=== PATIENT | male | born 1995 | race Caucasian/White ===

== ENCOUNTER 2024-01-11 10:05 | Outpatient (OUT) | payer MEDICAID, SELFPAY ==
--- NOTE | 2024-01-11 10:31 | CA_ITS ---
The [facility] Test Date: 2024-01-25 Pat Name: Elijah Tanner Department: Room: - Gender: Male Healthcare Account Manager: : 1995 Requested By: ELMO CHAMPAGNE Order Number: [id number] Reading MD: ERICK RIVERA Interpretive Statements Predominant rhythm is sinus with average rate of 101 bpm Tachycardia - max rate of 175 bpm (sinus tachycardia) - longest episode of 13h 24min 18sec with rates between 126-175 bpm Bradycardia - min rate of 52 bpm - longest episode of 38sec with rates between 54-59 bpm Ventricular ectopy - 199 total, <1% - 195 PVC - 2 couplets Patient triggered events: 8 - associated with palpitations - associated with sinus tachycardia - associated with rates of 126, 107, 109, 101, 100, 163, 154 and 125 bpm Impression: Predominant rhythm is sinus with average rate of 101 bpm Fastest rate of 175 bpm (sinus tachycardia) and slowest rate of 52 pbm 195 PVC and 2 coupletes No atrial fibrillation No pauses or blocks Electronically Signed On 01-26-2024 7:11:57 EDT by ERICK RIVERA
== END 2024-01-11 10:06 | disposition home or self-care (01) ==
LOC: CARD 10:06
PROVIDERS: PCP Family Medicine; Visit Provider Family Medicine
DX: R00.2 Palpitations (principal)
CPT/HCPCS: 93246

== ENCOUNTER 2024-03-22 15:08 | Emergency (ER) | payer MEDICAID, SELFPAY ==
[2024-03-22 15:14] VITALS: BP 180/92; PULSE 89; TEMP 37.2; O2SAT 99; BMI 41.8
--- NOTE | 2024-03-22 15:25 | US_ITS ---
The [address] [address] Patient Name: PADILLA CASTILLO MRN: [id number] date: 1995 Sex: M Assigned Patient Location: ER Current Patient Location: ER Accession/Order Number: [id number] Exam Date: 03/22/2024 16:04 Report Date: 03/22/2024 16:59 At the request of: [facility] Procedure: US scrotum doppler EXAM: US scrotum doppler HISTORY: testicular pain- LEFT COMPARISON: None. TECHNIQUE: Grayscale, color and Doppler FINDINGS: The right testicle is normal in size, contour and homogeneous echotexture measuring 4.3 x 2.6 x 3.1 cm. Normal color Doppler flow The right epididymis is normal No right hydrocele or varicocele. The left testicle is normal in size, contour and homogeneous echotexture measuring 4.2 x 2.6 x 3.0 cm. Normal color Doppler flow The left epididymis is normal Left hydrocele. Small left varicocele US/US scrotum doppler IMPRESSION: Small left varicocele Electronically authenticated by: REYNA BURNETTE Date: 03/22/2024 16:59
--- NOTE | 2024-03-22 15:29 | ED.GENADUL1 ---
HPI HPI - General Adult General Chief complaint: Urogenital-Male Stated complaint: Scrotal Pain Time Seen by Provider: 03/22/24 15:10 Source: patient Mode of arrival: walk-in Limitations: no limitations History of Present Illness HPI narrative: Patient presents to ED complaining of testicular pain. He said he has had mostly left Testicular pain On and off for the past month a month and a half. He said he was exposed to trichomonas And his doctor gave him some Flagyl to take at home but he did not take it. He is unsure if he is exposed to anything else. He was not tested for gonorrhea or chlamydia. He denies any pain with urination or abnormal discharge or redness. He said he was looking on the Internet and became nervous after reading about torsion and other serious things about testicular pain so he came in today for further evaluation. Patient does have a history of anxiety and high blood pressure.He denies abdominal pain or back pain Related Data Home Medications ?Medication ?Instructions ?Recorded ?Confirmed clonazepam 1 mg tablet 1 mg PO Q8H PRN anxiety 03/22/24 03/22/24 metoprolol tartrate 50 mg tablet 50 mg PO Q12H 03/22/24 03/22/24 Allergies Allergy/AdvReac Type Severity Reaction Status Date / Time No Known Drug Allergies Allergy Verified 03/22/24 15:12 Opioid HPI Opioid Management Most Recent Opioid Data: No Data to Display Review of Systems ROS Status of ROS 10 or more systems reviewed and unremarkable except as noted in history and below Exam Narrative Exam Narrative: General: alert, no acute distress Cardiovascular: regular rate and rhythm, normal peripheral perfusion. Respiratory: Lungs CTA, respirations non labored. Extremities: no deformity, no trauma. Neurological: oriented x 4, LOC appropriate for age. Abdomen soft nontender nondistended, obesity Normal external genitalia. Mild swelling in the left testicle with very mild pain. No acute tenderness no abnormal discharge no lesions Constitutional Vital Signs, click to edit/add: Last Vital Signs Temp 98.9 F 03/22/24 15:14 Pulse 86 03/22/24 16:56 Resp 18 03/22/24 16:56 BP 162/94 H 03/22/24 16:56 Pulse Ox 98 03/22/24 16:56 O2 Del Method Room Air 03/22/24 15:14 Course Vital Signs Vital signs: Vital Signs Temperature 98.9 F 03/22/24 15:14 Pulse Rate 89 03/22/24 15:14 Respiratory Rate 18 03/22/24 15:14 Blood Pressure 180/92 H 03/22/24 15:14 Pulse Oximetry 99 03/22/24 15:14 Oxygen Delivery Method Room Air 03/22/24 15:14 Temperature 98.9 F 03/22/24 15:14 Pulse Rate 86 03/22/24 16:56 Respiratory Rate 18 03/22/24 16:56 Blood Pressure 162/94 H 03/22/24 16:56 Pulse Oximetry 98 03/22/24 16:56 Oxygen Delivery Method Room Air 03/22/24 15:14 Medical Decision Making MDM Narrative Medical decision making narrative: Patient's urine is nonacute. He declined the swab for trichomonas. Gonorrhea chlamydia were sent in the urine and will not be back for couple of days.Patient has Flagyl at home for treatment of trichomonas exposure and he states he will just be taking that when he gets home. Ultrasound shows a small left varicocele. Otherwise workup is nonacute. Patient can follow-up with urology if he continues to have discomfort. Otherwise return to ED if anything worsens. Patient and family are comfortable care plan for home Differential Diagnosis Differential Diagnosis: Varicocele hydrocele Trichomonas STI Medical Records Medical records reviewed: Yes I reviewed the patient's medical records Lab Data Lab results reviewed: Yes I reviewed the patient's lab results Labs: Lab Results 03/22/24 Range/Units 15:29 Urine Color Lt. yellow (YELLOW) Urine Clarity Clear (CLEAR) Urine pH 6.0 (5.0-9.0) Ur Specific [place] 1.010 (1.005-1.025) Urine Protein Negative (NEG/TRACE) mg/dL Urine Glucose (UA) Negative (NEGATIVE) mg/dL Urine Ketones Negative (NEGATIVE) mg/dL Urine Occult Blood Negative (NEGATIVE) Urine Nitrite Negative (NEGATIVE) Urine Bilirubin Negative (NEGATIVE) Urine Urobilinogen 0.2 (0.2-1.0) EU/dL Ur Leukocyte Esterase Trace A (NEGATIVE) Urine RBC None seen (0-2) #/HPF Urine WBC 0-2 A (NONE SEEN) #/HPF Ur Squamous Epith Cells Rare (NONE/RARE) #/LPF Urine Crystals None seen (None Seen) #/HPF Urine Bacteria Trace A (NONE SEEN) #/HPF Urine Casts None seen (NONE SEEN) #/LPF Urine Mucus None seen (NONE SEEN) Ur Culture Indicated? No Imaging Data testicular US: Radiologist's impression: ITS Impressions Scrotum Ultrasound 03/22/24 15:25 IMPRESSION: Small left varicocele Electronically authenticated by: REYNA BURNETTE Date: 03/22/2024 16:59 Discharge Plan Discharge Stand Alone Forms: Portal Instructions Chief Complaint: Urogenital-Male Clinical Impression: Varicocele Patient Disposition: Home, Self-Care Time of Disposition Decision: 17:05 Condition: Good Mode of Transportation: Private Vehicle Prescriptions / Home Meds: No Action clonazepam 1 mg tablet 1 mg PO Q8H PRN (Reason: anxiety) metoprolol tartrate 50 mg tablet 50 mg PO Q12H Print Language: Kiswahili Instructions: Scrotal Pain (ED) Referrals: Socrates Grigsby MD [Primary Care Provider] - 1 week Maxwell Gallagher MD [Physician] - 1 week
[2024-03-22 15:38] LABS: Bilirubin Urine NEGATIVE (NEGATIVE); Blood Urine NEGATIVE (NEGATIVE); Clarity Urine CLEAR (CLEAR); Color Urine LT. YELLOW (YELLOW); Glucose Urine UA NEGATIVE (NEGATIVE); Ketones Urine NEGATIVE (NEGATIVE); Leukocyte Esterase Urine TRACE (NEGATIVE); Nitrite Urine NEGATIVE (NEGATIVE); Protein Urine NEGATIVE (NEG/TRACE); Urobilinogen Urine 0.2 EU/dL (0.2-1.0)
[2024-03-22 15:43] LABS: Urine Microscopic Indicated YES
[2024-03-22 15:59] LABS: Bacteria Urine TRACE #/HPF (NONE SEEN); Cast Seen? NONE SEEN #/LPF (NONE SEEN); Crystals Seen? None Seen #/HPF (None Seen); Mucus Urine NONE SEEN (NONE SEEN); RBC Urine NONE SEEN #/HPF (0-2); Squamous Epithelial Cell Urine RARE #/LPF (NONE/RARE); Urine Culture Indicated NO; WBC Urine 0-2 #/HPF (NONE SEEN)
[2024-03-22 16:56] VITALS: BP 162/94; PULSE 86; O2SAT 98
[2024-03-23 21:10] LABS: Neisseria gonorrhoeae, NAA Negative (Negative)
== END 2024-03-22 17:10 | disposition home or self-care (01) ==
PROVIDERS: Emergency Provider Emergency Medicine; PCP Family Medicine
DX: I86.1 Scrotal varices (principal); E66.9 Obesity, unspecified; Z68.41 Body mass index [BMI] 40.0-44.9, adult
CPT/HCPCS: 76870; 81001; 87210; 87491; 87591; 93976; 99284

== ENCOUNTER 2024-08-10 09:56 | Outpatient (OUT) | payer MEDICAID, SELFPAY ==
--- OUTSIDE RECORDS SUMMARY | 2024-08-10 09:59 | XMS_ITS | CCD ---
Author Organization [facility] ion [facility] Care Team Providers Care Cigarette Seller Name Role Phone TORRES MCKAY Unavailable Unavailable TORRES MKCAY Unavailable Unavailable EDDIE GREY PSYD Unavailable UnavailSOCRATES Chahal Consulting Unavailable SOCRATES CHAMPAGNE Attending Unavailable SOCRATES CHAMPAGNE Admitting Unavailable SOCRATES CHAMPAGNE Attending Unavailable SOCRATES CHAMPAGNE Admitting Unavailable SOCRATES CHAMPAGNE Primary Care Unavailable SOCRATES CHAMPAGNE Consulting Unavailable Vicki Gibbs Unavailable Anita Doty Unavailable Frances Driscoll Unavailable Samano, Evelyn Unavailable Samano Evelyn Attending Unavailable Selwyn, Evelyn Admitting Unavailable Socrates Champagne MD Primary Care Provider SOCRATES CHAMPAGNE Referring Unavailable SOCRATES CHAMPAGNE Primary Care Unavailable SOCRATES CHAMPAGNE Primary Care Physician [phone] Maxwell GALLAGHER Attending Unavailable NADSIMON, SOCRATES Attending Unavailable NADSIMON, SOCRATES Attending Unavailable NADEREBarrett, SOCRATES Attending Unavailable NADEREBarrett, SOCRATES Attending Unavailable NADSOCRATES MONTES Attending Unavailable Allergies Allergy Classification Reported Allergen(s) Allergy Type Date of Onset Reaction(s) Facility (2 sources) No Known Medication Allergies; Translations: [No Known Medication Allergies] Propensity to adverse reactions to drug (disorder) [facility] Repository Medications Current Medications Medication Drug Class(es) Dates Sig (Normalized) Sig (Original) amoxicillin 500 mg oral capsule (1 source) Penicillin-class Antibacterial Start: 01-10-2024 take 500 mg by mouth three times daily Amoxicillin Active 500 MG PO Three times daily 23 08January 10, 2024 12:00am clonazePAM 1 mg oral tablet (9 sources) Benzodiazepine Start: 04-28-2024 take 1 tablet by mouth three times daily clonazepam 1 mg Tab 1 mg = 1 tab(s), Oral, TID, Refills(s) 0 Start Date: 04/28/24 Status: Ordered Start: 01-10-2024 take 1 tablet by aden th once daily at bedtime Clonazepam Active 1 TAB PO Daily at bedtime January 10, 2024 12:00am FreeTextSi tablet at bedtime Orally Once a day; Note: Source Status: Taking; Provider: Selwyn Rivas ( ) Start: 11-22-2023 End: 01-02-2024 take 1 tablet by mouth three times daily as needed for anxiety clonazePAM (KlonoPIN) 0.5 MG tablet Indications: Generalized anxiety disorder (CMS/HCC) Take 1 tablet (0.5 mg) by mouth 3 (three) times a day as needed for anxiety 90 tablet 1 12/03/2023 01/02/2024 Active take 1 tablet by aden th every twenty-four hours KlonoPIN 0.5 MG 1 tablet at bedtime Orally Once a day Active ibuprofen 800 mg oral tablet (2 sources) Nonsteroidal Anti-inflammatory Drug End: 12-03-2023 take 1 tablet by mouth every eight hours as needed for pain ibuprofen 800 MG tablet Take 1 tablet by mouth every 8 (eight) hours if needed for mild pain (take with food) 0 12/03/2023 Discontinued methylPREDNISolone 4 mg oral tablet (4 sources) Corticosteroid Start: 03-01-2023 Medrol (Raciel) 4 MG as directed Orally for daily dose take half with breakfast half with dinner for 6 days Sep, Active Start: 10-17-2020 Medrol 4 MG as directed Orally for 6 days Sep, Active 24 hr metoprolol succinate 50 mg extended release oral tablet (7 sources) beta-Adrenergic Matthew Start: 04-28-2024 take 1 tablet by mouth twice daily metoprolol succinate 50 mg ER Tab 50 mg = 1 tab(s), Oral, BID, Refills(s) 0 Start Date: 04/28/24 Status: Ordered Start: 10-21-2023 End: 10-20-2024 take 1 tablet by mouth twice daily at mealtime Metoprolol Tartrate Active 1 TAB PO Twice daily January 10, 2024 12:00am FreeTextSi tablet with food Orally Twice a day; Note: Source Status: Taking; Provider: Selwyn Rivas ( ) take 1 tablet by aden th every twelve hours Metoprolol Tartrate 50 MG 1 tablet with food Orally Twice a day Active OXcarbazepine 150 mg oral tablet (3 sources) Anti-epileptic Agent Start: 12-03-2023 take 1 tablet by mouth in the morning OXcarbazepine (Trileptal) 150 MG tablet Indications: Generalized anxiety disorder (CMS/HCC) Take 1 tablet (150 mg) by mouth in the morning and 1 tablet (150 mg) before bedtime. 60 tablet 3 12/03/2023 Active Start: 12-03-2023 take 1 tablet by aden th in the morning OXcarbazepine (Trileptal) 150 MG tablet Indications: Generalized anxiety disorder (CMS/HCC) Take 1 tablet (150 mg) by mouth in the morning and 1 tablet (150 mg) before bedtime. 60 tablet 3 12/03/2023 Active Penicillin (1 source) Start: 10-11-2023 take 1 tablet by mouth every six hours Penicillin VK 500mg 500mg take 1 tablet Oral every 6 hours for 10 days Sep, Active sildenafil 20 mg oral tablet (2 sources) Phosphodiesterase 5 Inhibitor Start: 08-31-2022 End: 12-03-2023 take 1 tablet by mouth every twenty-four hours as needed sildenafil (Revatio) 20 MG tablet Take 1 tablet by mouth Daily as needed (pulm. hypertension) 0 08/31/2022 12/03/2023 Discontinued Completed/Discontinued Medications Medication Drug Class(es) Dates Sig (Normalized) Sig (Original) [id number] actuat albuterol 0.09 mg/actuat metered dose inhaler (3 sources) beta2-Adrenergic Agonist take 2 puff(s) by inhalation four times daily as needed Albuterol Sulfate HFA 108 (90 Base) MCG/ACT 2 puffs Inhalation qid prn Not-Taking/PRN take 2 puff(s) by in halation four times daily as needed Albuterol Sulfate HFA 108 (90 Base) MCG/ACT 2 puffs Inhalation qid prn Not-Taking 200 actuat levalbuterol 0.045 mg/actuat metered dose inhaler (5 sources) beta2-Adrenergic Agonist Start: 03-01-2023 take 1 puff(s) by inhalation every four to six hours as needed Levalbuterol Tartrate 45 MCG/ACT 1 puff Inhalation every 4-6 hours for 7 days February, Not-Taking/PRN take 2 puff(s) by in halation every four hours for wheezing levalbuterol (Xopenex HFA) 45 MCG/ACT inhaler Inhale 2 puffs every 4 (four) hours if needed for wheezing 0 Active LORazepam (3 sources) Benzodiazepine Ativan Not-Takin g/PRN Ativan Not-Takin g Ativan Active predniSONE 20 mg oral tablet (3 sources) Start: 12-08-2021 take 1 tablet by mouth every twelve hours predniSONE 20 MG 1 tablet Orally bid for 5 day(s) Nov, Not-Taking/PRN Problems Active Problems Problem Classification Problem Date Documented Da te Episodic/Chronic Acute bronchitis (2 sources) Acute bronchitis due to other specified organisms; Translations: [Acute bronchitis, unspecified] Episodic Anxiety disorders (7 sources) Generalized anxiety disorder; Translations: [Generalized anxiety disorder] Onset: 07-20-2022 12-03-2023 Chronic Cardiac dysrhythmias (1 source) Ventricular tachycardia; Translations: [Ventricular tachycardia] 01-10-2024 Chronic Cardiac dysrhythmias (17 sources) Palpitations; Translations: [Palpitations] Onset: 10-13-2019 12-03-2023 Episodic Disorders of teeth and jaw (1 source) Periapical abscess without sinus Episodic Essential hypertension (1 source) Hypertensive disorder 05-01-2024 Chronic Mood disorders (6 sources) Recurrent major depressive episodes, mild ; Translations: [Major depressive disorder, recurrent, mild] Onset: 07-20-2022 12-03-2023 Chronic Nutritional deficiencies (3 sources) Vitamin D deficiency; Translations: [Vitamin D deficiency, unspecified] Onset: 10-26-2023 10-26-2023 Chronic Other circulatory disease (1 source) Other specified symptoms and signs involving the circulatory and respiratory systems Episodic Other diseases of veins and lymphatics (2 sources) Varicocele; Translations: [Scrotal varices] Onset: 05-01-2024 Episodic Other lower respiratory disease (3 sources) Dyspnea; Translations: [Shortness of breath] Onset: 10-26-2023 10-26-2023 Episodic Other male genital disorders (3 sources) Secondary erectile dysfunction; Translations: [Male erectile dysfunction, unspecified] Onset: 10-26-2023 10-26-2023 Chronic Other male genital disorders (1 source) Pain in testicle; Translations: [Testicular pain, unspecified] Onset: 05-01-2024 Episodic Other male genital disorders (1 source) Hydrocele of testis; Translations: [Hydrocele, unspecified] Onset: 05-01-2024 Episodic Other male genital disorders (1 source) Disorder of male genital organ 05-01-2024 Episodic Other nutritional; endocrine; and metabolic disorders (3 sources) Morbid obesity; Translations: [Morbid (severe) obesity due to excess calories] Onset: 10-26-2023 10-26-2023 Chronic Other upper respiratory disease (4 sources) Allergic rhinitis; Translations: [Allergic rhinitis, unspecified] Chronic Other upper respiratory infections (3 sources) Acute upper respiratory infection, unspecified; Translations: [Acute pharyngitis, unspecified] Onset: 12-08-2021 Resolved: 12-08-2021 Episodic Residual codes; unclassified (3 sources) Obstructive sleep apnea syndrome; Translations: [Obstructive sleep apnea (adult) (pediatric)] Onset: 10-26-2023 10-26-2023 Chronic Residual codes; unclassified (1 source) Edema 05-01-2024 Episodic Unclassified (1 source) Cough, unspecified; Translations: [Cough, unspecified] Onset: 10-11-2023 Past or Other Problems Problem Classification Problem Date Documented Da te Episodic/Chronic Immunizations and screening for infectious disease (6 sources) Contact with and (suspected) exposure to other viral communicable diseases; Translations: [Encounter for screening for other viral diseases] Onset: 09-04-2020 Resolved: 12-08-2021 Episodic Unclassified (1 source) Contact with and (suspected) exposure to covid-19 Z20.822 Unclassified (1 source) Cough R05.9 Results Test Name Value Interpretation Reference Range Facility Ambulatory Visit Summaryon 0 05-01-2024 Ambulatory Visit Summary Ambulatory Visit Summary PADILLA TANNER :1995 Visit Date:05/01/2024 Ambulatory Visit Instructions Your Diagnosis Testicular pain Hydrocele Varicocele Your Care Team Attending Physician - Maxwell GALLAGHER MD Primary Care Physician - SOCRATES CHAMPAGNE MD This Is Your Medications List Contact prescribing physician if questions or concerns clonazepam (clonazepam 1 mg Tab) metoprolol (metoprolol succinate 50 mg ER Tab) Procedures Performed None. Discharge Vitals Heart Rate (Peripheral) 91 Respiratory Rate 16 Blood Pressure 138/85 Height 174 cm Height 69 in Weight 121 kg Weight 266.2 lb BMI 39.97 What to do next You Need to Schedule the Following Appointments Follow Up with LORNA MAGDALENO, ALINA Copeland When: Only if needed Where: [facility] [address], [place] [address]- [phone] Medications What How Much When Instructions Unchanged clonazepam (clonazepam 1 mg Tab) 1 Tablets By Mouth 3 times a day Contact prescribing physician if questions or concerns Unchanged metoprolol (metoprolol succinate 50 mg ER Tab) 1 Tablets By Mouth 2 times a day Contact prescribing physician if questions or concerns Allergies No Known Medication Allergies Problems Ongoing - Any problem that you are currently receiving treatment for. Depressive disorder Generalized anxiety disorder Hydrocele Hydrops Hypertension Varicocele Patient Survey You may receive a survey via text or e-mail asking about your office visit. Please share your experience with us by completing your survey. We appreciate your feedback and thank you for choosing us for your care. Education Materials Steps to Quit Smoking Smoking tobacco is the leading cause of preventable . It can affect almost every organ in the body. Smoking puts you and those around you at risk for developing many serious chronic diseases. Quitting smoking can be very challenging. Do not get discouraged if you are not successful the first time. Some people need to make many attempts to quit before they achieve long-term success. Do your best to stick to your quit plan, and talk with your health care provider if you have any questions or concerns. How do I get ready to quit? When you decide to quit smoking, create a plan to help you succeed. Before you quit: ? Pick a date to quit. Set a date within the next 2 weeks to give you time to prepare. ? Write down the reasons why you are quitting. Keep this list in places where you will see it often. ? Tell your family, friends, and co-workers that you are quitting. Support from people you are close to can make quitting easier. ? Talk with your health care provider about your options for quitting smoking. ? Find out what treatment options are covered by your health insurance. ? Identify people, places, things, and activities that make you want to smoke (triggers). Avoid them. What first steps can I take to quit smoking? ? Throw away all cigarettes at home, at work, and in your car. ? Throw away smoking accessories, such as ashtrays and lighters. ? Clean your car. Make sure to empty the ashtray. ? Clean your home, including curtains and carpets. What strategies can I use to quit smoking? Talk with your health care provider about combining strategies, such as taking medicines while you are also receiving in-person counseling. Using these two strategies together makes you more likely to succeed in quitting than if you used either strategy on its own. If you are or , talk with your health care provider about finding counseling or other support strategies to quit smoking. Do not take medicine to help you quit smoking unless your health care provider tells you to. Quit right away ? Quit smoking completely, instead of gradually reducing how much you smoke over a period of time. Stopping smoking right away may be more successful than gradually quitting. ? Attend in-person counseling to help you build problem-solving skills. You are more likely to succeed in quitting if you attend counseling sessions regularly. Even short sessions of 10 minutes can be effective. Take medicine You may take medicines to help you quit smoking. Some medicines require a prescription. You can also purchase kthr-soy-pjxmojr medicines. Medicines may have nicotine in them to replace the nicotine in cigarettes. Medicines may: ? Help to stop cravings. ? Help to relieve withdrawal symptoms. Your health care provider may recommend: ? Nicotine patches, gum, or lozenges. ? Nicotine inhalers or sprays. ? Non-nicotine medicine that you take by mouth. Find resources Find resources and support systems that can help you quit smoking and remain smoke-free after you quit. These resources are most helpful when you use them often. They include: ? Online chats with a counselor. ? Telephone (more content not included)... Normal [facility] Urology Office/Clinic Noteon 05-01-2024 Urology Office/Clinic Note Urology Office/Clinic Note Chief Complaint SANITATION SUPERVISOR *ER f/u Varicocele HPI Staff New pt. Never before seen in our office. f/u from [facility] ED visit 03/22/24 for testicular pain. Left hydrocele and a small left varicocele found on scrotal US. NEG Clam/GC UA TRACE leuks (not sent for C&S) NEG Micro Testicular pain has let up, not completely. Mostly Lt testicle, does radiate to lower abdomen. Denies Hx of testicular pain. Denies pain/burning and visible blood in urine. History of Present Illness Tests reviewed: reviewed UA, ER notes, Scrotal US I have reviewed the previous health record information and history for this patient from external providers. I have reviewed and verified the staff HPI to be accurate for this encounter. Review of Systems PHQ Score Initial Depression Screen Score: 0 SCORE ROS - Provider Constitutional: denies weight loss, denies hot flashes. Eyes: denies eye problems. Gastrointestinal: denies nausea, denies vomiting. Cardiovascular: denies chest pain or angina. Integumentary: no dryness Musculoskeletal: denies musculoskeletal symptoms. ENMT: denies otolaryngeal symptoms. Respiratory: no shortness of breath. Heme/Lymph: denies easy bleeding tendency, denies easy bruising tendency. Psychiatric: no confusion, no anxiety. Genitourinary: See HPI. Physical Exam Vitals & Measurements HR: 91(Peripheral) RR: 16 BP: 138/85 HT: 69 in HT: 174 cm WT: 121 kg WT: 266.2 lb BMI: 39.97 General Appearance: alert, no distress, well nourished, well developed male. Genitourinary: normal scrotum, abnormal testes - tender, L>R, normal urethra, normal epididymis, normal vas deferens/spermatic cord. no inguinal hernia palpable. Assessment/Plan Padilla is a 28 yo male new pt here for f/u to [facility] ER due to testicular pain. 1. Testicular pain (N50.819: Testicular pain, unspecified) [facility] ER visit 03/22/24 c/o testicular pain. UA showed trace leuks only. No urine culture done. Negative Clam/GC. Reports intermittent bilateral testicular pain, ongoing since January. Worse on L, radiates into abdomen. Denies worsening pain with movement. Does not awaken pt from sleep. Denies hx of UTIs. No pain/burning with urination, no penile discharge, and no gross hematuria. UA today negative for blood and infection. No hx of kidney stones. States he has some swelling on L but not a significant amount. Denies any trauma to the area but admits he was lifting heavy objects due to moving recently. Also states his ejaculate has become more watery around the time pain started. Denies pain with ejaculation. Discussed etiology of pain is unclear. Recommended pt to present to ER if sxs worsen. 2. Hydrocele (N43.3: Hydrocele, unspecified) Scrotal US 03/22/24 [facility] - Left hydrocele. minor. not appreciable by exam. Reviewed imaging results w/ pt. Advised pt this is not likely contributing to pain. No indication for intervention. 3. 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 No likely cause of pain. Follow-up With When Contact Information LORNA MAGDALENO, Maxwell Hyde, URL Only if needed [facility] [address], [place] [address]- [phone] Additional Instructions: Patient Education Steps to Quit Smoking Testicular Self-Exam I, Teresa Lopez, personally scribed for Dr. Gallagher on 05/01/2024 11:52:02. . Documentation recorded by the scribe, Teresa Lopez, accurately reflects the services(s) I performed and decisions made by me. Authenticated by Dr. Gallagher on 05/01/2024 11:54:35. Problem List/Past Medical History Ongoing Depressive disorder Generalized anxiety disorder Hydrocele Hydrops Hypertension Varicocele Historical No qualifying data Procedure/Surgical History None. Medications clonazepam 1 mg Tab, 1 mg= 1 tab(s), Oral, TID metoprolol succinate 50 mg ER Tab, 50 mg= 1 tab(s), Oral, BID Allergies No Known Medication Allergies Social History Tobacco 10 or more cigarettes (1/2 pack or more)/day in last 30 days Tobacco Use:. Never Smokeless Tobacco Use:. Cigarettes, Household tobacco concerns: No. Yes, 05/01/2024 Family History Family history is negative Lab Results Ambulatory Point of Care Results Bilirubin Urine Dipstick: Negative (05/01/24 11:18:00) Blood Urine Dipstick: Negative (05/01/24 11:18:00) Glucose Urine Dipstick: Negative (05/01/24 11:18:00) Ketones Urine Dipstick: Negative (05/01/24 11:18:00) Leukocytes Urine Dipstick: Negative (05/01/24 11:18:00) Nitrite Urine Dipstick: Negative (05/01/24 11:18:00) Protein Urine Dipstick: Negative (05/01/24 11:18:00) Specific [place] Urine Dipstick: 1.015 (05/01/24 11:18:00) Urine Appearance Urine Dipstick: Clear (05/01/24 11:18:00) Urine Color Urine Dipstick: Yellow (05/01/24 11:18:00) Urobilinogen Urine Dipstick: Normal 0.2-1 EU/dl (05/01/24 11:18:00) pH Urine Dipstick: 5.5 (05/01/24 11:18:00) Normal [facility] Comment on above: Result Comment: Elec tronically Signed By: Maxwell GALLAGHER MD\.br\Date and Time Signed: 05/01/24 11:54 EDT\.br\Electronically Co-Signed By: Teresa Lopez\.br\Date and Time Co-Signed: 05/01/24 11:52 EDT No Panel InformationOrdered By: Diamond Amor on 01-10-2024 Quick Strep (POC) [facility] Quick Strepon 10-11-2023 S. pyogenes Org specific cx Ql (Throat) Negative [employer] Other Quick Strep [email or web address] [facility] [employer] Other XR chest 2V*on 10-11-2023 XR chest 2V* [facility] [place] [address] XRay Report Signed Patient: Padilla Tanner MR#: [id number] : 1995 Acct:[id number] Age/Sex: 28 / M ADM Date: 10/11/23 Loc: XDUCLY Room: Type: [facility] CLI Attending Dr: Evelyn Samano SANITATION SUPERVISOR Copies to: Evelyn Samano NP Ordering Provider: Evelyn Samano NP Date of Service: 10/11/23 XR/XR chest 2V*: Cough PA AND LATERAL CHEST: CLINICAL HISTORY: Productive cough and shortness of breath COMPARISON: None There is no focal parenchymal consolidation, effusion or pneumothorax. The cardiac, hilar and mediastinal silhouettes are within normal limits. There is no vascular congestion. The visualized bony thorax is intact. XR/XR chest 2V* IMPRESSION: NO ACUTE CARDIOPULMONARY ABNORMALITY. Impression dictated by: Deborah Sanchez M.D.10/11/2023 3:24 PM Dictation Location: [facility]-- Transcribed By: [facility] 10/11/23 1524 Dictated By: Deborah Sanchez MD 10/11/23 1523 Signed By: 10/11/23 1524 Normal [facility] XR chest 2V* [facility] [employer] Other XR chest 2V* [facility] [employer] Other XR chest 2V* [address] [place] [address] [employer] Other XR chest 2V* [address] [employer] Other XR chest 2V* XRay Report [employer] Other XR chest 2V* Signed [employer] Other XR chest 2V* Patient: Padilla Tanner MR#: [id number] [place] [employer] Other XR chest 2V* : 1995 Acct:[id number] [employer] Other XR chest 2V* Age/Sex: 28 / M ADM Date: 10/11/23 [employer] Other XR chest 2V* Loc: XDUCLY Room: Type: [facility] [employer] Other XR chest 2V* Attending Dr: Evelyn Samano SANITATION SUPERVISOR [employer] Other XR chest 2V* Copies to: Evelyn Samano NP [employer] Other XR chest 2V* Ordering Provider: Evelyn Samano NP [employer] Other XR chest 2V* Date of Service: 10/11/23 [employer] Other XR chest 2V* XR/XR chest 2V*: Cough [employer] Other XR chest 2V* PA AND LATERAL CHEST: [employer] Other XR chest 2V* CLINICAL HISTORY: Productive cough and shortness of breath [employer] Other XR chest 2V* COMPARISON: None [employer] Other XR chest 2V* There is no focal parenchymal consolidation, effusion or pneumothorax. The cardiac, hilar and [employer] Other XR chest 2V* mediastinal silhouettes are within normal limits. There is no vascular congestion. The [employer] Other XR chest 2V* visualized bony thorax is intact. [employer] Other XR chest 2V* XR/XR chest 2V* [employer] Other XR chest 2V* IMPRESSION: [employer] Other XR chest 2V* NO ACUTE CARDIOPULMONARY ABNORMALITY. [employer] Other XR chest 2V* Impression dictated by: Deborah Sanchez M.D.10/11/2023 3:24 PM [employer] Other XR chest 2V* Dictation Location: [place] [address] [employer] Other XR chest 2V* Transcribed By: BRITTNY 10/11/23 1524 [employer] Other XR chest 2V* Dictated By: Deborah Sanchez MD 10/11/23 1523 [employer] Other XR chest 2V* Signed By: [employer] Other XR chest 2V* 10/11/23 1524 [email or web address] [facility] [employer] Other COVID/FLU RT-PCRon 3 SARS-CoV-2 (COVID-19) RNA MARA+probe Ql (Unsp spec) Negative [facility] [employer] Other COVID/FLU RT-PCR Negative [facility] [employer] Other COVID Quick Testingon 2021 Result Negative [employer] Other COVID Quick Testingon 2021 Result Negative [employer] Other COVID-19 PCRon 09-06-2020 SARS-CoV-2, MARA Not Detected Normal Not Detected [facility] Comment on above: Result Comment: This nucleic acid amplification test was developed and its performance characteristics determined by [employer]. Nucleic acid amplification tests include PCR and TMA. This test has not been FDA cleared or approved. This test has been authorized by FDA under an Emergency Use Authorization (EUA). This test is only authorized for the duration of time the declaration that circumstances exist justifying the authorization of the emergency use of in vitro diagnostic tests for detection of SARS-CoV-2 virus and/or diagnosis of COVID-19 infection under section 564(b)(1) of the Act, 21 U.S.C. 360bbb-3(b) (1), unless the authorization is terminated or revoked sooner. When diagnostic testing is negative, the possibility of a false negative result should be considered in the context of a patient's recent exposures and the presence of clinical signs and symptoms consistent with COVID-19. An individual without symptoms of COVID-19 and who is not shedding SARS-CoV-2 virus would expect to have a negative (not detected) result in this assay. Performed By: #### C VDPCR #### [facility] [address] [place] [address] Barrington Cabrera Vital Signs Date Time Vital Sign Value Performing Clinician Facility 05-01-2024 11:21-0400 Blood Pressure Location Maxwell GALLAGHER [facility] 05-01-2024 11:21-0400 Diastolic blood pressure 85 mm[Hg] Maxwellsue GALLAGHER [facility] 05-01-2024 11:21-0400 Heart rate 91 /min Maxwellsue GALLAGHER [facility] 05-01-2024 11:21-0400 Respiratory rate 16 /min Maxwell GALLAGHER [facility] 05-01-2024 11:21-0400 Systolic blood pressure 138 mm[Hg] Maxwellsue GALLAGHER [facility] 01-10-2024 10:37-0400 Body height 175.26 cm [facility] 01-10-2024 10:37-0400 Body mass index (BMI) [Ratio] 41.2 kg/m2 [facility] 01-10-2024 10:37-0400 Body temperature 97.9 [degF] [facility] 01-10-2024 10:37-0400 Body weight 126.66 kg [facility] 01-10-2024 10:37-0400 Heart rate 91 /min [facility] 01-10-2024 10:37-0400 Respiratory rate 18 /min [facility] 01-10-2024 10:37-0400 SaO2% (BldA) [Mass fraction] 98 % [facility] 12-03-2023 11:20-0500 Body height 172.7 cm Socrates Champagne MD Work Phone: [facility] 12-03-2023 11:20-0500 Body mass index (BMI) [Ratio] 43.18 kg/m2 Socrates Champagne MD Work Phone: [facility] 12-03-2023 11:20-0500 Body temperature 97.5 [degF] Socrates Champagne MD Work Phone: [facility] 12-03-2023 11:20-0500 Body weight 128.82 kg Socrates Champagne MD Work Phone: [facility] 12-03-2023 11:20-0500 Diastolic blood pressure 70 mm[Hg] Socrates Champagne MD Work Phone: [facility] 12-03-2023 11:20-0500 Heart rate 96 /min Socrates Champagne MD Work Phone: [facility] 12-03-2023 11:20-0500 SaO2% (BldA) [Mass fraction] 98 % Socrates Champagne MD Work Phone: [facility] 12-03-2023 11:20-0500 Systolic blood pressure 140 mm[Hg] Socrates Champagne MD Work Phone: [facility] 10-11-2023 14:15-0500 Body height 175.26 cm Evelyn Samano Other [facility] Other 10-11-2023 14:15-0500 Body mass index (BMI) [Ratio] 42.23 kg/m2 Evelyn Samano Other [facility] [facility] Other 10-11-2023 14:15-0500 Body temperature 98.4 [degF] Evelyn Samano Other [facility] Other 10-11-2023 14:15-0500 Body weight 129.73 kg Evelyn Samano Other [employer] [facility] Other 10-11-2023 14:15-0500 Diastolic blood pressure 96 mm[Hg] Evelyn Samano Other [facility] Other 10-11-2023 14:15-0500 Respiratory rate 18 /min Evelyn Samano Other [facility] [facility] Other 10-11-2023 14:15-0500 SaO2% (BldA) [Mass fraction] 96 % Evelyn Samano Other [facility] [facility] Other 10-11-2023 14:15-0500 Systolic blood pressure 143 mm[Hg] Evelyn Samano Other [facility] Other 03-01-2023 14:30-0400 Body height 175.26 cm Frances Driscoll Other [employer] [facility] Other 03-01-2023 14:30-0400 Body mass index (BMI) [Ratio] 41.34 kg/m2 Frances Alexandraler Other [facility] Other 03-01-2023 14:30-0400 Body temperature 98.4 [degF] Frances Driscoll Other [facility] Other 03-01-2023 14:30-0400 Body weight 127.01 kg Frances Driscoll Other [facility] [facility] Other 03-01-2023 14:30-0400 Respiratory rate 20 /min Frances Alexandraler Other [employer] [facility] Other 03-01-2023 14:30-0400 SaO2% (BldA) [Mass fraction] 96 % Frances Driscoll Other [facility] [facility] Other 12-08-2021 15:30-0500 Body height 175.26 cm Anita Doty Other [employer] [facility] Other 12-08-2021 15:30-0500 Body mass index (BMI) [Ratio] 39.87 kg/m2 Anita Doty Other [facility] Other 12-08-2021 15:30-0500 Body temperature 98.4 [degF] Anita Doty Other [facility] Other 12-08-2021 15:30-0500 Body weight 122.47 kg Anita Doty Other [facility] [facility] Other 12-08-2021 15:30-0500 Respiratory rate 20 /min Anita Doty Other [facility] [facility] Other 12-08-2021 15:30-0500 SaO2% (BldA) [Mass fraction] 98 % Anita Doty Other [employer] Other Encounters Encounter Date Encounter Type Care Provider Facility Start: 07-05-2024 End: 07-05-2024 ambulatory SOCRATES NADERER Not Available Start: 05-01-2024 End: 05-01-2024 ambulatory Maxwell GALLAGHER Facility: [place] Start: 05-01-2024 End: 05-01-2024 Patient encounter procedure Maxwell GALLAGHER [facility] [place] Start: 03-29-2024 End: 03-29-2024 ambulatory SOCRATES NADERER Not Available Start: 03-23-2024 ambulatory Maxwell GALLAGHER Facility :[facility] Start: 03-03-2024 End: 03-03-2024 ambulatory SOCRATES NADERER Not Available Start: 01-10-2024 End: 01-10-2024 ambulatory [facility] Work Phone: Start: 01-10-2024 End: 01-10-2024 Patient encounter procedure [facility] Work Phone: Start: 01-07-2024 End: 01-07-2024 ambulatory SOCRATES CHAMPAGNE Not Available Start: 01-03-2024 End: 01-04-2024 ambulatory SOCRATES CHAMPAGNE [facility] Start: 12-07-2023 Orders Only Socrates Phelps Work Phone: [facility] Comment on above: Palpitation (Primary Dx) Start: 12-03-2023 End: 12-03-2023 Office outpatient visit 25 minutes Socrates Champagne MD Work Phone: [facility] Comment on above: Generalized anxiety disorder (CMS/HCC) (Primary Dx); Palpitation; Sinus tachycardia; Major depressive disorder, recurrent episode, mild (HCC) (CMS/HCC) Start: 12-03-2023 End: 12-03-2023 ambulatory SOCRATES CHAMPAGNE Not Available Start: 10-11-2023 End: 10-11-2023 ambulatory Evelyn Samano [facility] Other Start: 10-11-2023 Office outpatient vi sit 25 minutes Evelyn Samano [facility] Start: 03-01-2023 End: 03-01-2023 ambulatory Frances Driscoll Other [employer] [facility] Other Start: 03-01-2023 Office outpatient vi sit 25 minutes Frances Driscoll [facility] Start: 12-08-2021 End: 12-08-2021 ambulatory Anita Doty Other [facility] Other Start: 12-08-2021 Office outpatient vi sit 15 minutes Anita Doty [facility] Start: 11-25-2021 End: 11-25-2021 ambulatory Vicki Gibbs Other [facility] Other Start: 11-25-2021 Office outpatient vi sit 5 minutes Vicki Gibbs [facility] Start: 09-04-2020 End: 09-05-2020 Patient encounter procedure SOCRATES CHAMPAGNE Facility:[facility] Start: 10-13-2019 End: 10-14-2019 Patient encounter procedure SOCRATES CHAMPAGNE Facility:[facility] Start: 08-26-2017 Ambulatory TORRES MCKAY Fac ility:[facility] Start: 08-19-2017 Ambulatory EDDIE Leena THOMPSONWALLY GREY Fa cility:[facility] Start: 07-26-2017 End: 07-27-2017 Ambulatory TORRES MCKAY Facility:[facility] Procedures Date Procedure Procedure Detail Performing Clinician Start: 01-10-2024 Quick Strep (POC) None (qualifier value) Jaime GALLAGHER Plan of Treatment Date Care Activity Detail Author Start: 01-07-2024 End: 01-07-2024 Patient encounter procedure 01/07/2024 11:30 AM EDT Office Visit [facility] [address] [place] [id number] Socrates Champagne MD [address] [place] [id number] [facility] Start: 12-07-2023 End: 12-07-2025 Cardiac event monitor Cardiac event monitor Cardiac Services Routine Palpitation Expected: 12/07/2023 (Approximate), Expires: 12/07/2025 [facility] Work Phone: Comment on above: Expected: 12/07/2023 (Approximate), Expires: 12/07/2025 Start: 12-03-2023 End: 12-03-2025 Holter monitor 48 hour Holter monitor 48 hour Cardiac Services Routine Palpitation Sinus tachycardia Expected: 12/03/2023 (Approximate), Expires: 12/03/2025 [facility] Work Phone: Comment on above: Expected: 12/03/2023 (Approximate), Expires: 12/03/2025 Start: 06-25-2023 Influenza vaccination Influenza Vacc ine (#1) [facility] Payers Date Payer Category Payer Medicaid [id number] 2023 Private Health Insurance [id number] 2023 Self-pay 2022 Private Health Insurance [facility] [id number] 2022-Present [address] [address] [place] [address] [id number] 2022 Private Health Insurance [id number] 2017 Unknown 1997 Unknown [id number] 593 1997 Unknown [id number] 593 1997 Unknown [id number] 727 1997 Unknown [id number]. 1259 1997 Unknown [id number]. 1259 1997 Unknown [id number]. 1259 1997 Unknown [id number]. 1259 1997 Unknown [id number]. 1259 1959 Private Health Insurance [id number] 1959 Private Health Insurance [id number] Unknown [id number] 531 Unknown MMO [employer] [id number] Social History Date Type Detail Facility Unknown if ever smoked [employer] Other Start: 12-03-2023 Sex Assigned At F [facility] Start: 10-20-2023 [facility] History of tobacco use Cigarette Smoker N [facility] Start: 10-20-2023 End: 12-03-2023 Cigarettes smoked current (pack per day) - Reported 1 [facility] Start: 1995 Sex Assigned At Not on file N [facility] Start: 02-28-2017 Tobacco smoking stat [facility] Smoker (finding) [facility] Start: 1995 Sex Assigned At Male F [facility] Start: 05-01-2024 Tobacco smoking status Heavy t obacco smoker (finding) [facility] Tobacco smoking status Never [facility] Functional Status Date Assessment Result Facility 05-01-2024 Functional Status N/A [facility] Clinical Notes 11-25-2021 to 05-01-2024 Socrates Champagne MD - 12/03/2023 11:42 AM Kristy Champagne MD - 12/03/2023 11:41 AM Kristy Champagne MD - 12/03/2023 11:41 AM Kristy Champagne MD - 12/03/2023 11:41 AM EST Note Date & Type Note Facility 05-01-2024 Hospital Discharge instructions Patient Education 05/01/2024 11:51:44 Steps to Quit Smoking Steps to Quit Smoking Smoking tobacco is the leading cause of preventable . It can affect almost every organ in the body. Smoking puts you and those around you at risk for developing many serious chronic diseases. Quitting smoking can be very challenging. Do not get discouraged if you are not successful the first time. Some people need to make many attempts to quit before they achieve long-term success. Do your best to stick to your quit plan, and talk with your health care provider if you have any questions or concerns. How do I get ready to quit? When you decide to quit smoking, create a plan to help you succeed. Before you quit: Pick a date to quit. Set a date within the next 2 weeks to give you time to prepare. Write down the reasons why you are quitting. Keep this list in places where you will see it often. Tell your family, friends, and co-workers that you are quitting. Support from people you are close to can make quitting easier. Talk with your health care provider about your options for quitting smoking. Find out what treatment options are covered by your health insurance. Identify people, places, things, and activities that make you want to smoke (triggers). Avoid them. What first steps can I take to quit smoking? Throw away all cigarettes at home, at work, and in your car. Throw away smoking accessories, such as ashtrays and lighters. Clean your car. Make sure to empty the ashtray. Clean your home, including curtains and carpets. What strategies can I use to quit smoking? Talk with your health care provider about combining strategies, such as taking medicines while you are also receiving in-person counseling. Using these two strategies together makes you more likely to succeed in quitting than if you used either strategy on its own. If you are or , talk with your health care provider about finding counseling or other support strategies to quit smoking. Do not take medicine to help you quit smoking unless your health care provider tells you to. Quit right away Quit smoking completely, instead of gradually reducing how much you smoke over a period of time. Stopping smoking right away may be more successful than gradually quitting. Attend in-person counseling to help you build problem-solving skills. You are more likely to succeed in quitting if you attend counseling sessions regularly. Even short sessions of 10 minutes can be effective. Take medicine You may take medicines to help you quit smoking. Some medicines require a prescription. You can also purchase [id number]-[id number] medicines. Medicines may have nicotine in them to replace the nicotine in cigarettes. Medicines may: Help to stop cravings. Help to relieve withdrawal symptoms. Your health care provider may recommend: Nicotine patches, gum, or lozenges. Nicotine inhalers or sprays. Non-nicotine medicine that you take by mouth. Find resources Find resources and support systems that can help you quit smoking and remain smoke-free after you quit. These resources are most helpful when you use them often. They include: Online chats with a counselor. Telephone quitlines. Printed self-help materials. Support groups or group counseling. Text messaging programs. Mobile phone apps or applications. Use apps that can help you stick to your quit plan by providing reminders, tips, and encouragement. Examples of free services include Quit Guide from the CDC and smokefree.gov What can I do to make it easier to quit? Reach out to your family and friends for support and encouragement. Call telephone quitlines, such as 7-046-HAEK-NOW, reach out to support groups, or work with a counselor for support. Ask people who smoke to avoid smoking around you. Avoid places that trigger you to smoke, such as bars, parties, or smoke-break areas at work. Spend time with people who do not smoke. Lessen the stress in your life. Stress can be a smoking trigger for some people. To lessen stress, try: ?Exercising regularly. ?Doing deep-breathing exercises. ?Doing yoga. ?Meditating. What benefits will I see if I quit smoking? Over time, you should start to see positive results, such as: Improved sense of smell and taste. Decreased coughing and sore throat. Slower heart rate. Lower blood pressure. Clearer and healthier skin. The ability to breathe more easily. Fewer sick days. Summary Quitting smoking can be very challenging. Do not get discouraged if you are not successful the first time. Some people need to make many attempts to quit before they achieve long-term success. When you decide to quit smoking, create a plan to help you succeed. Quit smoking right away, not slowly over a period of time. Find resources and support systems that can help you quit smoking and remain smoke-free after you quit. This information is not intended to replace advice given to you by your health care provider. Make sure you discuss any questions you have with your health care provider. Document Revised: 10/02/2022 Document Reviewed: 10/02/2022 [employer] Patient Education 2022 [employer]. 05/01/2024 11:51:21 Testicular Self-Exam Testicular Self-Exam A self-examination of your testicles (testicular self-exam) involves looking at and feeling your testicles for abnormal lumps or swelling. Several things can cause swelling, lumps, or pain in your testicles. Some of these causes are: Injuries. Inflammation. Infection. Buildup of fluids around the testicle (hydrocele). Twisted testicles (testicular torsion). Testicular cancer. You may be at risk for testicular cancer if you have: ?An undescended testicle (cryptorchidism). ?A history of previous testicular cancer. ?A family history of testicular cancer. General tips and recommendations The testicles are easiest to examine after a warm bath or shower. They are more difficult to examine when you are cold because the muscles attached to the testicles retract and pull them up higher or into the abdomen. A normal testicle is egg-shaped and feels firm. It is smooth and not tender. It is normal to feel a firm, spaghetti-like cord at the back of your testicle. This is the spermatic cord. How to do a testicular self-exam 1.Stand and hold your penis away from your body. 2.Look at each testicle to check for changes in appearance, such as swelling or changes in size or shape. 3.Roll each testicle between your thumb and forefinger, feeling the entire testicle. Feel for: Lumps. Swelling. Discomfort. 4.Check the groin area between your abdomen and upper thighs on both sides of your body. Look and feel for any swelling or bumps that are tender. These could be enlarged lymph nodes. Contact a health care provider if: You find any bumps or lumps, such as a small, hard, pea-sized lump. You find swelling, pain, or soreness. You see or feel any other changes in your testicles. Summary A self-examination of your testicles (testicular self-exam) involves looking at and feeling your testicles for any changes. Check each of your testicles for lumps, swelling, or discomfort. These changes can be caused by many things. Check for swelling or tender bumps in your groin area between your lower abdomen and upper thighs. This information is not intended to replace advice given to you by your health care provider. Make sure you discuss any questions you have with your health care provider. Document Revised: 09/16/2020 Document Reviewed: 09/16/2020 [employer] Patient Education 2022 [employer]. Follow Up Care 03/23/2024 10:35:10 With:LORNA MAGDALENO, Maxwell Hdye, URL Address: [facility] [address] , [place] [phone] When: only if needed [facility] 05-01-2024 Note Patient Education Pulmonary Medicine Steps to Quit Smoking Smoking tobacco is the leading cause of preventable . It can affect almost every organ in the body. Smoking puts you and those around you at risk for developing many serious chronic diseases. Quitting smoking can be very challenging. Do not get discouraged if you are not successful the first time. Some people need to make many attempts to quit before they achieve long-term success. Do your best to stick to your quit plan, and talk with your health care provider if you have any questions or concerns. How do I get ready to quit? When you decide to quit smoking, create a plan to help you succeed. Before you quit: ? Pick a date to quit. Set a date within the next 2 weeks to give you time to prepare. ? Write down the reasons why you are quitting. Keep this list in places where you will see it often. ? Tell your family, friends, and co-workers that you are quitting. Support from people you are close to can make quitting easier. ? Talk with your health care provider about your options for quitting smoking. ? Find out what treatment options are covered by your health insurance. ? Identify people, places, things, and activities that make you want to smoke (triggers). Avoid them. What first steps can I take to quit smoking? ? Throw away all cigarettes at home, at work, and in your car. ? Throw away smoking accessories, such as ashtrays and lighters. ? Clean your car. Make sure to empty the ashtray. ? Clean your home, including curtains and carpets. What strategies can I use to quit smoking? Talk with your health care provider about combining strategies, such as taking medicines while you are also receiving in-person counseling. Using these two strategies together makes you more likely to succeed in quitting than if you used either strategy on its own. If you are or , talk with your health care provider about finding counseling or other support strategies to quit smoking. Do not take medicine to help you quit smoking unless your health care provider tells you to. Quit right away ? Quit smoking completely, instead of gradually reducing how much you smoke over a period of time. Stopping smoking right away may be more successful than gradually quitting. ? Attend in-person counseling to help you build problem-solving skills. You are more likely to succeed in quitting if you attend counseling sessions regularly. Even short sessions of 10 minutes can be effective. Take medicine You may take medicines to help you quit smoking. Some medicines require a prescription. You can also purchase ysuj-uce-txnbsdh medicines. Medicines may have nicotine in them to replace the nicotine in cigarettes. Medicines may: ? Help to stop cravings. ? Help to relieve withdrawal symptoms. Your health care provider may recommend: ? Nicotine patches, gum, or lozenges. ? Nicotine inhalers or sprays. ? Non-nicotine medicine that you take by mouth. Find resources Find resources and support systems that can help you quit smoking and remain smoke-free after you quit. These resources are most helpful when you use them often. They include: ? Online chats with a counselor. ? Telephone quitlines. ? Printed self-help materials. ? Support groups or group counseling. ? Text messaging programs. ? Mobile phone apps or applications. Use apps that can help you stick to your quit plan by providing reminders, tips, and encouragement. Examples of free services include Quit Guide from the CDC and smokefree.gov What can I do to make it easier to quit? ? Reach out to your family and friends for support and encouragement. Call telephone quitlines, such as 7-694-UBNO-NOW, reach out to support groups, or work with a counselor for support. ? Ask people who smoke to avoid smoking around you. ? Avoid places that trigger you to smoke, such as bars, parties, or smoke-break areas at work. ? Spend time with people who do not smoke. ? Lessen the stress in your life. Stress can be a smoking trigger for some people. To lessen stress, try: ? Exercising regularly. ? Doing deep-breathing exercises. ? Doing yoga. ? Meditating. What benefits will I see if I quit smoking? Over time, you should start to see positive results, such as: ? Improved sense of smell and taste. ? Decreased coughing and sore throat. ? Slower heart rate. ? Lower blood pressure. ? Clearer and healthier skin. ? The ability to breathe more easily. ? Fewer sick days. Summary ? Quitting smoking can be very challenging. Do not get discouraged if you are not successful the first time. Some people need to make many attempts to quit before they achieve long-term success. ? When you decide to quit smoking, create a plan to help you succeed. ? Quit smoking right away, not slowly over a period of time. ? Find resources and support systems that can (more content not included)... [facility] 12-03-2023 History of Present illness Narrative Associated Problem(s): Sinus tachycardia Frequent symptoms and check Holter. Continue metoprolol. Associated Problem(s): Palpitation Increased symptoms and likely related to anxiety. Repeat Holter monitor. Associated Problem(s): Generalized anxiety disorder (CMS/HCC) C/o severe anxiety and daily symptoms. Add trileptal to help control mood. Use klonopin PRN. Associated Problem(s): Major depressive disorder, recurrent episode, mild (HCC) (CMS/HCC) Denies symptoms and monitor. Subjective Patient ID: Padilla Tanner is a 28 y.o. male who presents for Follow-up (Heart palpatations). Follow up depression, anxiety, and palpitations. Reports depression doing well and no symptoms. Not down or sad and feels happier. C/o worsening anxiety. Severe stress and not handling well. Nervous and worry all the time. Stressed out and overwhelmed. Thought racing and hard to clear mind. Sharp, irritable and snapping at others. Easily upset and overreact. Using klonopin 2-3 times a day and helps but feels like needs it often. C/o worsening palpitations. Feels heart racing and beating fast. At times feels like skipping beats. Symptoms daily and several times a day. Taking metoprolol BID. Not associated with lightheadedness but reports mild SOB. Review of Systems Constitutional: Negative for fatigue. Respiratory: Negative for cough, shortness of breath and wheezing. Cardiovascular: Negative for chest pain and palpitations. Gastrointestinal: Negative for abdominal pain, diarrhea, nausea and vomiting. Genitourinary: Negative for dysuria. Objective Physical Exam Constitutional: General: He is not in acute distress. Appearance: Normal appearance. HENT: Head: Normocephalic. Right Ear: Tympanic membrane and ear canal normal. Left Ear: Tympanic membrane and ear canal normal. Eyes: Extraocular Movements: Extraocular movements intact. Pupils: Pupils are equal, round, and reactive to light. Cardiovascular: Rate and Rhythm: Normal rate and regular rhythm. Heart sounds: No murmur heard. No friction rub. No gallop. Pulmonary: Breath sounds: Normal breath sounds. No wheezing, rhonchi or rales. Abdominal: General: Bowel sounds are normal. There is no distension. Palpations: Abdomen is soft. Tenderness: There is no abdominal tenderness. There is no guarding or rebound. Musculoskeletal: Left lower leg: No edema. Neurological: Mental Status: He is alert. Assessment/Plan Problem List Items Addressed This Visit Generalized anxiety disorder (CMS/HCC) - Primary C/o severe anxiety and daily symptoms. Add trileptal to help control mood. Use klonopin PRN. Relevant Medications clonazePAM (KlonoPIN) 0.5 MG tablet OXcarbazepine (Trileptal) 150 MG tablet Major depressive disorder, recurrent episode, mild (HCC) (CMS/HCC) Denies symptoms and monitor. Sinus tachycardia Frequent symptoms and check Holter. Continue metoprolol. Relevant Orders Holter monitor 48 hour Palpitation Increased symptoms and likely related to anxiety. Repeat Holter monitor. Relevant Orders Holter monitor 48 hour documented in this encounter [facility] 10-11-2023 Evaluation note Encounter Date Diagnosis Assessment Notes Sep, Dental abscess (ICD-10 - K04.7) reviewed known allergies c pt, rx sent, take as directed. recommended otc tylenol for pain. warm compresses to affected area as directed. must f/u c dentistry for further eval and mgmt. seek immediate eval if intractable pain, fevers, flu-like symptoms accompanied by worsening s/s. 18 Dec, 2023 Acute bronchitis (ICD-10 - J20.9) reviewed cxr with pt while in clinic, no cardiopulmonary abnormalities. clinical presentation is consistent with viral bronchitis, discussion with patient on the expected course of illness - this is a self-limited illness that typically resolves within 1-3 weeks without specific therapy and cough that can persists for longer. use of antibiotics does not hasten recovery or prevent complications, and it increases risk of adverse events and contribute to development of antibiotic resistance. recommended that patient continue supportive treatment for comfort. rx sent, take as directed. push rest/fluids. encouraged DB and pulmonary hygiene techniques. reinforced good hand and cough hygiene for infection control. immediate eval if warning s/s of intractable fevers or respir distress unrelieved by rescue inhaler. otherwise f/u with PCP if new onset fever, difficulty breathing, symptoms last > 3-4 weeks, or bloody sputum. Sep, Cough (ICD-10 - R05.9) Sep, Sore throat (ICD-10 - J02.9) [employer] Other 05-08-2023 Evaluation note* Encounter Date Diagnosis Assessment Notes Treatment Notes Treatment Clinical Notes February, Chest congestion (ICD-10 - R09.89) February, Acute viral bronchitis (ICD-10 - J20.8) Advise patient that COVID/influenza A/B PCR test was negative today in office. Discussed diagnosis with patient in detail. Will treat as viral today based on physical exam and duration of symptoms, antibiotics are not indicated for viral infections. Advised patient that viral syndromes last 7-10 days, cough may linger for 3 weeks. Take medications as prescribed, reviewed side effects of steroid, take with food and plenty of water. Supportive care as directed, push fluids and rest, may use Tylenol/Motrin as needed for fever/discomfort, cool mist humidifier. Advised patient to follow up with PCP in 2-3 days. Immediate eval if SOB, difficulty breathing, chest pain, dizziness, or other concerning symptoms. Patient verbalizes understanding and is agreeable to treatment plan. February, Contact with and (suspected) exposure to covid-19 (ICD-10 - Z20.822) [employer] [facility] Other 02-14-2022 Evaluation note* Encounter Date Diagnosis Assessment Notes Treatment Notes Treatment Clinical Notes Nov, Contact with and (suspected) exposure to other viral communicable diseases (ICD-10 - Z20.828) Nov, Viral upper respiratory illness (ICD-10 - J06.9) Drink plenty fluids, get plenty of rest. Take the prednisone as prescribed until gone. Use the albuterol inhaler as prescribed as needed for cough or shortness of breath. Take Tylenol or Motrin as needed for aches pains or fever. Follow-up with your family physician if no improvement in 2 to 3 days. Nov, Other Additional time spent conducting pre-visit phone call, screening for symptoms, instructions on social distancing, application and removal of PPE, and cleaning of examination room, equipment and supplies was preformed. Patient education given for testing methodology and results. Patient care instructions given in writting by [facility] document. [employer] [facility] Other 02-01-2022 Evaluation note* Encounter Date Diagnosis Assessment Notes Treatment Notes Treatment Clinical Notes Nov, Encounter for screening for other viral diseases (ICD-10 - Z11.59) Nov, Other Additional time spent conducting pre-visit phone call, screening for symptoms, instructions on social distancing, application and removal of PPE, and cleaning of examination room, equipment and supplies was preformed. Patient education given for testing methodology and results. Patient care instructions given in writting by [facility] document. [employer] Other Evaluation + Plan note No data available for this section [facility] evaluation note* Diagnosis Generalized anxiety disorder (CMS/HCC)- Primary Generalized anxiety disorder Palpitation Palpitations Sinus tachycardia Other specified cardiac dysrhythmias Major depressive disorder, recurrent episode, mild (HCC) (CMS/HCC) Major depressive disorder, recurrent episode, mild [facility] Diagnosis Palpitation- Primary Palpitations [facility]* Diagnosis Onset Date Resolution Status Bacterial pharyngitis noneac [facility] Work Phone: History general Narrative - Reported* Type Description Date Medical History Unspecified asthma Medical History anxiety [facility] [employer] Other [facility] general Narrative - Reported* Type Description Date Medical History Unspecified asthma Medical History anxiety Medical History Ventricular tachycardia [facility] [employer] Other Progress note No data available for this section [facility] Summary Purpose Family History No Family History Records Found Relationship Condition Age at Onset Recorded Date/T leroy father Unknown Diabetes mellitus Unknown family member Unknown Advance Directives No Advanced Directives Records Found Advance Directive Response Recorded Date/ Time Advance Directives No September 8:31pm Reason for Referral Specialty Diagnoses / Procedures Referred By Alex martinez Referred To Contact Cardiology Diagnoses Palpitation Procedures Cardiac event monitor Socrates Champagne MD [address] [place] [address] Referral ID Status Reason Start Date Expiration Date V isits Requested Visits Authorized [id number] Pending Review 12/07/2023 06/04/2024 1 1 Specialty Diagnoses / Procedures Referred By Alex martinez Referred To Contact Radiology Diagnoses Palpitation Sinus tachycardia Procedures Holter monitor 48 hour Socrates Champagne MD [address] [place] [address] Referral ID Status Reason Start Date Expiration Date V isits Requested Visits Authorized [id number] Pending Review 12/03/2023 05/31/2024 1 1 Chief Complaint and Reason for Visit Chief Complaint sore throat, white s pots Reason for Visit Bacterial pharyngiti s Additional Source Comments INFORMATION SOURCE (unrecogn ized section and content) DATE CREATED AUTHOR 04/19/2018 [facility] DATE CREATED AUTHOR AUTHOR'S ORGANIZ ATION 09/09/2020 [facility] DATE CREATED AUTHOR AUTHOR'S ORGANIZ ATION 10/17/2023 [facility] DATE CREATED AUTHOR AUTHOR'S ORGANIZ ATION 01/04/2024 [facility] DATE CREATED AUTHOR AUTHOR'S ORGANIZ ATION 05/02/2024 [facility] DATE CREATED AUTHOR AUTHOR'S ORGANIZ ATION 07/07/2024 [facility] EPIC (unrecognized sect ion and content) No Status Records FoundNo Status Records FoundNo Status Records FoundNo Status Records FoundNo Status Records Found REASON FOR VISIT (unrecogniz ed section and content) Reason Comments Follow-up Heart palpatations Care Teams (unrecognized sec tion and content) Cigarette [employer] Relationship Specialty Start Date End Date Socrates Champagne MD [address] [place] [id number] PCP - General Family Medicine 12/03/23 [employer]igarette [employer] Relationship Specialty Start Date End Date Socrates Champagne MD [address] [place] [id number] PCP - General Family Medicine 12/03/23 Team Status: Active Member Role Status Dates Socrates Champagne MD Primary Care Provider Active Team Status: Inactive Member Role Status Dates Socrates Champagne MD Primary Care Provider Active S tart: January 10, 2024 End: January 10, 2024 Anita Doty NP-C Attending Provider Active S tart: January 10, 2024 End: January 10, 2024 Goals (unrecognized section and content) Goals may be documented in a n alternate section FOR RECORDS PERTAINING TO PATIENTS WHO ARE OR HAVE BEEN ENROLLED IN A CHEMICAL DEPENDENCY/SUBSTANCEABUSE PROGRAM, SOME INFORMATION MAY BE OMITTED. This clinical summary was aggregated from multiple sources. Caution should be exercised in using it in the provision of clinical care. This summary normalizes information from multiple sources, and as a consequence, information in this document may materially change the coding, format and clinical context of patient data. In addition, data may be omitted in some cases. CLINICAL DECISIONS SHOULD BE BASED ON THE PRIMARY CLINICAL RECORDS. [employer] provides no warranty or guarantee of the accuracy or completeness of information in this document.
[2024-08-10 10:21] LABS: Basophils Percent Auto 0.6 % (0.2-2.0); Eosinophils Absolute Auto 0.1 10^3/uL (0.0-0.7); Eosinophils Percent Auto 1.9 % (0.9-7.0); Hematocrit 46.8 % (42.0-54.0); Hemoglobin 15.9 g/dL (14.0-18.0); Immature Granulocytes Abs Auto 0.01 10^3/uL (0.00-0.03); Immature Granulocytes Pct Auto 0.1 % (0.0-0.5); Lymphocytes Absolute Auto 1.3 10^3/uL (1.2-3.8); Lymphocytes Percent Auto 18.5 % (20.5-60.0); Mean Corpuscular Hemoglobin 32.8 pg (25.9-34.0); Mean Corpuscular Volume 96.5 fL (80.0-94.0); Monocytes Absolute Auto 0.4 10^3/uL (0.3-0.8); Monocytes Percent Auto 5.2 % (1.7-12.0); Neutrophils Percent Auto 73.7 % (43.0-75.0); Platelet Count 166 10^3/uL (150-450); Red Blood Count 4.85 10^6/uL (4.70-6.10); Red Cell Distribution Width 12.9 % (11.0-15.0); White Blood Count 6.8 10^3/uL (4.0-11.0)
[2024-08-10 11:05] LABS: Estimated Average Glucose 105 mg/dL; Glycohemoglobin A1C 5.3 % (4.5-6.2)
[2024-08-10 11:32] LABS: Alanine Aminotransferase 65 U/L (16-63); Albumin Level 3.8 g/dL (3.4-5.0); Alkaline Phosphatase 90 U/L (46-116); Anion Gap 17.1; Aspartate Amino Transferase 27 U/L (15-37); BUN Creatinine Ratio 11.2; Bilirubin Direct 0.1 mg/dL (0.0-0.2); Bilirubin Total 0.5 mg/dL (0.2-1.0); Calcium 9.3 mg/dL (8.5-10.1); Carbon Dioxide 23.9 mmol/L (21.0-32.0); Chloride 101 mmol/L (98-107); Cholesterol 197 mg/dL (<=200); Estimated GFR (African America >60 (>=60 mL/min/1.73m^2); Estimated GFR (Non-African Ame >60 (>=60 mL/min/1.73m^2); Globulin 3.9 g/dL; Glucose 106 mg/dL (74-106); HDL Cholesterol 33 mg/dL (40-60); Sodium 138 mmol/L (136-145); Thyroid Stimulating Hormone 3.162 uIU/mL (0.358-3.740); Total Protein 7.7 g/dL (6.4-8.2); Triglycerides 775 mg/dL (<=150)
[2024-08-10 12:19] LABS: LDL Cholesterol Direct 63 mg/dL
== END 2024-08-10 09:57 | disposition home or self-care (01) ==
LOC: LAB 09:56
PROVIDERS: PCP Family Medicine; Visit Provider Family Medicine
DX: Z00.00 Encounter for general adult medical examination without abnormal findings (principal)
CPT/HCPCS: 36415; 80048; 80061; 80076; 83036; 83721; 84443; 85025